=== PATIENT | female | born 1980 | race Hispanic/Latino ===

== ENCOUNTER 2021-04-02 09:29 | Emergency (ER) | payer MEDICAID, OTHER ==
[2021-04-02] MEDS ORDERED: Ondansetron ODT 4 MG TAB ONE (10:07)
[2021-04-02] MEDS ORDERED: methylPREDNISolone Acetate 40 mg/ml Vial ONE (10:08)
== END 2021-04-02 10:58 | disposition home or self-care (01) ==
LOC: NAV ERS 09:29
DX: S50.862A Insect bite (nonvenomous) of left forearm, initial encounter (principal); W57.XXXA Bitten or stung by nonvenomous insect and other nonvenomous arthropods, initial encounter
CPT/HCPCS: 96372; 99283; J2920; Q0162